=== PATIENT | female | born 1975 | race Caucasian/White ===

== ENCOUNTER 2023-10-03 10:00 | Emergency (ER) | payer SELFPAY ==
[2023-10-03 10:01] VITALS: BP 117/63; PULSE 93; RESP 20; TEMP 36.6; O2SAT 97; BMI 20.9
--- NOTE | 2023-10-03 10:27 | W.ED.ANXIETY ---
HPI - Anxiety General: Chief Complaint: Anxiety Stated Complaint: PSYCH EVAL Time Seen by Provider: 10/03/23 10:02 Source: patient Mode of arrival: EMS History of Present Illness: 47-year-old female presents emergency room complaining of being stressed. She admits to regular alcohol use she drank half to a pint of alcohol this morning. She usually drinks at least a pint a day. She does not have any fever sweats or chills no nausea vomiting or diarrhea she states she is just stressed and wants to check herself in. She denies any suicidal or homicidal ideation she is not currently on any antipsychotics or antidepressants. She states she is unable to manage [employer] infused activities MD complaint: anxiety Onset (ago): month(s) Associated symptoms: Deny anorexia, chest pain, chills, confusion, diaphoresis, fever(s), headache(s), malaise, nausea, palpitations, short of breath, syncope, vomiting or weakness Review of Systems Const: Denies: fever(s), chills, malaise or diaphoresis Card: Denies: chest pain, palpitations or syncope Resp: Denies: dyspnea GI: Denies: nausea or vomiting : Denies: dysuria, urinary frequency or urinary urgency Musc: Denies: neck pain or back pain Skin/Breast: Denies: rash Neuro: Denies: headache(s) or confusion Physical Exam Const: COMMON NORMALS: no acute distress GENERAL APPEARANCE: cooperative and comfortable ORIENTATION/CONSCIOUSNESS: Yes awake, Yes oriented to person, Yes oriented to place and Yes oriented to time HENMT: COMMON NORMALS: normocephalic, atraumatic and hearing grossly normal bilaterally HEAD & SCALP: normocephalic and atraumatic Resp: COMMON NORMALS: normal respiratory effort, No retractions, No use of accessory muscles and clear to auscultation bilaterally AUSCULTATION: clear to auscultation bilaterally Cardio: COMMON NORMALS: regular rate, regular rhythm and No murmurs present (Cardio) RATE: regular rate RHYTHM: regular rhythm GI: COMMON NORMALS: Soft to palpation and No hepatosplenomegaly present AUSCULTATION: Yes normoactive bowel sounds PALPATION: Yes Soft to palpation, No Tenderness to palpation present (GI), No Guarding due to palpation present (GI) and Yes No hepatosplenomegaly present Extremity: COMMON NORMALS: normal to inspection, capillary refill normal, no clubbing, cyanosis or edema, no calf tenderness and no pedal edema Neuro: SENSORIUM/ORIENTATION: Yes oriented to person, Yes oriented to place and Yes oriented to time Skin: COMMON NORMALS: no rashes or lesions noted GENERAL SKIN EXAM: no rashes or lesions noted Course Vital Signs: Vital signs: Vital Signs Temperature 97.8 F 10/03/23 10:01 Pulse Rate 93 10/03/23 10:01 Respiratory Rate 20 H 10/03/23 10:01 Blood Pressure 117/63 10/03/23 10:01 Pulse Oximetry 97 10/03/23 10:01 Oxygen Delivery Me thod Room Air 10/03/23 10:01 MDM - Anxiety Medical Decision Making Patient has significant anxiety brought about by her methamphetamine and alcohol use. We will discharge patient home encouraged her to abstain from substance abuse. She is not homicidal or suicidal at this time. Medical Records I reviewed the patient's medical records. Lab Data I reviewed the patient's lab results. 10/03/23 10:19 10/03/23 10:19 Laboratory Results WBC 7.07 10^3/uL (3.29-11.43) 10/03/23 10:19 RBC 4.47 10^6/uL (3.85-5.65) 10/03/23 10:19 Hgb 14.90 g/dL (11.27-16.99) 10/03/23 10:19 Hct 43.7 % (36-47) 10/03/23 10:19 MCV 97.8 fl (85-98) 10/03/23 10:19 MCH 33.3 pg (27-33) H 10/03/23 10:19 MCHC 34.1 g/dL (30-55) 10/03/23 10:19 RDW 13.0 % (12.1-15.1) 10/03/23 10:19 Plt Count 235 10^3/cmm (157-399) 10/03/23 10:19 MPV 9.5 fL (7.4-10.4) 10/03/23 10:19 Neut % (Auto) 65.5 % 10/03/23 10:19 Lymph % (Auto) 27.3 % 10/03/23 10:19 Knox % (Auto) 4.7 % 10/03/23 10:19 Eos % (Auto) 1.4 % 10/03/23 10:19 Baso % (Auto) 0.8 % 10/03/23 10:19 Neut # (Auto) 4.63 10^3/uL (1.8-7.7) 10/03/23 10:19 Lymph # (Auto) 1.9 10^3/uL (0.8-4.8) 10/03/23 10:19 Knox # (Auto) 0.3 10^3/uL (0.2-0.9) 10/03/23 10:19 Eos # (Auto) 0.1 10^3/uL (0.0-0.8) 10/03/23 10:19 Baso # (Auto) 0.1 10^3/uL (0.0-0.1) 10/03/23 10:19 Nucleated RBC % (auto) 0 % 10/03/23 10:19 Nucleated RBCs # 0.0 /100WBC 10/03/23 10:19 Sodium 139 mmol/L (136-145) 10/03/23 10:19 Potassium 3.8 mmol/L (3.5-5.1) 10/03/23 10:19 Chloride 102 mmol/L (98-107) 10/03/23 10:19 Carbon Dioxide 22 mmol/L (22-29) 10/03/23 10:19 Anion Gap 18.8 (5-19) 10/03/23 10:19 BUN 11 mg/dL (6-20) 10/03/23 10:19 Creatinine 0.6 mg/dL (0.5-0.9) 10/03/23 10:19 GFR Calculation 107.2 mL/min (90-130) 10/03/23 10:19 Glucose 79 mg/dL (65-115) 10/03/23 10:19 Calculated Osmolality 286 mOsm/kg (285-295) 10/03/23 10:19 Calcium 8.5 mg/dL (8.5-10.5) 10/03/23 10:19 Total Bilirubin 0.5 mg/dL (0.15-1.2) 10/03/23 10:19 AST 236 U/L (0-32) H 10/03/23 10:19 ALT 263 U/L (0-33) H 10/03/23 10:19 Alkaline Phosphatase 101 U/L (35-105) 10/03/23 10:19 Ammonia 53 umol/L (11-51) H 10/03/23 10:19 Total Protein 7.7 g/dL (6.6-8.7) 10/03/23 10:19 Albumin 4.4 g/dL (3.5-5.2) 10/03/23 10:19 Globulin 3.3 g/dL (1.3-4.6) 10/03/23 10:19 HCG, Qual Negative (Negative) 10/03/23 10:19 Salicylates < 0.3 mg/dL (3-10) L 10/03/23 10:19 Urine Opiates Screen Negative ng/mL (Negative) 10/03/23 10:43 Acetaminophen < 5.0 ug/mL (10-30) L 10/03/23 10:19 Ur Barbiturates Screen Negative ng/mL (Negative) 10/03/23 10:43 Ur Phencyclidine Scrn Negative ng/mL (Negative) 10/03/23 10:43 Ur Amphetamines Screen Positive ng/mL (Negative) H 10/03/23 10:43 U Benzodiazepines Scrn Negative ng/mL (Negative) 10/03/23 10:43 Urine Cocaine Screen Negative ng/mL (Negative) 10/03/23 10:43 U Marijuana (THC) Screen Positive ng/mL (Negative) H 10/03/23 10:43 Ethyl Alcohol 361 mg/dL (0-10) H* 10/03/23 10:19 No radiology studies performed this visit Discharge Plan Discharge Patient Disposition: Home Clinical Impression: Acute anxiety, Alcohol intoxication, Methamphetamine abuse Condition: Stable Prescriptions: No Action No Known Home Medications Discharge Orders: Discharge ED (Routine); Ordered 10/03/23 Ordered By: Devyn Lagunas Patient Instructions: Methamphetamine Abuse, Abuse of Alcohol (ED), Methamphetamine Use Disorder (ED), Opioid Safety, Pain Management Activity Restrictions/Additional Instructions: Thank you for choosing [facility] for your healthcare needs today. Please realize this is an emergency room and that we are providing you with a medical screening exam and this may not be complete and all inclusive of all the testing and or work up that you may need to determine your ailment or severity of your illness. It is very important that you follow up as instructed or that you return to the Emergency Department should you have concerns or if your condition changes or worsens in any way. Recommend following up with [facility] to help with anxiety and substance abuse issues. Coding Level of Care Code ED Kitchen Mechanic for [facility]
[2023-10-03 10:41] LABS: Basophils # 0.1 10^3/uL (0.0-0.1); Basophils % 0.8 %; Eosinophils # 0.1 10^3/uL (0.0-0.8); Eosinophils % 1.4 %; Hematocrit 43.7 % (36-47); Lymphocytes # 1.9 10^3/uL (0.8-4.8); Lymphocytes % 27.3 %; Mean Corpuscular HGB Conc 34.1 g/dL (30-55); Mean Corpuscular Hemoglobin 33.3 pg (27-33); Mean Corpuscular Volume 97.8 fl (85-98); Mean Platelet Volume 9.5 fL (7.4-10.4); Monocytes # 0.3 10^3/uL (0.2-0.9); Monocytes % 4.7 %; Neutrophils # 4.63 10^3/uL (1.8-7.7); Neutrophils % 65.5 %; Nucleated Red Blood Cells % 0 %; Platelet Count 235 10^3/cmm (157-399); Red Blood Count 4.47 10^6/uL (3.85-5.65); White Blood Count 7.07 10^3/uL (3.29-11.43)
[2023-10-03] MEDS: LORazepam 2 mg Tablet PO (10:51)
[2023-10-03 11:11] LABS: Alanine Aminotransferase 263 U/L (0-33); Albumin Level 4.4 g/dL (3.5-5.2); Alkaline Phosphatase 101 U/L (35-105); Aspartate Amino Transferase 236 U/L (0-32); Blood Urea Nitrogen 11 mg/dL (6-20); Calcium 8.5 mg/dL (8.5-10.5); Carbon Dioxide 22 mmol/L (22-29); Chloride 102 mmol/L (98-107); Globulin 3.3 g/dL (1.3-4.6); Glomerular Filtration Rate 107.2 mL/min (90-130); Glucose 79 mg/dL (65-115); Osmolality Calculated 286 mOsm/kg (285-295); Sodium 139 mmol/L (136-145); Total Bilirubin 0.5 mg/dL (0.15-1.2); Total Protein 7.7 g/dL (6.6-8.7)
[2023-10-03 11:12] LABS: HCG, Serum Qual Negative (Negative)
[2023-10-03 11:13] LABS: Acetaminophen < 5.0 ug/mL (10-30); Salicylate < 0.3 mg/dL (3-10)
[2023-10-03 11:14] LABS: Anion Gap 18.8 (5-19); Potassium 3.8 mmol/L (3.5-5.1)
[2023-10-03 11:15] LABS: Alcohol Level 361 mg/dL (0-10); Ammonia 53 umol/L (11-51)
[2023-10-03 11:21] LABS: Amphetamines Screen Urine Positive (Negative); Barbiturates Screen Urine Negative (Negative); Benzodiazepines Screen Urine Negative (Negative); Cocaine Screen Urine Negative (Negative); Opiate Screen Urine Negative (Negative); PCP Screen Urine Negative (Negative); THC Screen Urine Positive (Negative)
== END 2023-10-03 12:53 | disposition home or self-care (01) ==
PROVIDERS: Emergency Provider Family Medicine
DX: F41.9 Anxiety disorder, unspecified (principal); F10.129 Alcohol abuse with intoxication, unspecified; Y90.8 Blood alcohol level of 240 mg/100 ml or more; F15.10 Other stimulant abuse, uncomplicated
CPT/HCPCS: 36415; 80053; 80306; 80307; 82140; 84703; 85025; 99283